=== PATIENT | male | born 1985 | race Caucasian/White ===

== ENCOUNTER 2017-01-29 10:50 | Emergency (ER) | payer MEDICARE, OTHER ==
[~2017-01-29] VITALS: Wt 65.0 kg
[2017-01-29] MEDS ORDERED: KETOROLAC 30 MG INJ IV STA (14:49)
[2017-01-29] MEDS ORDERED: ONDANSETRON 4 MG INJ IV STA (14:49)
[2017-01-29] MEDS ORDERED: SOD CHLORIDE 0.9% 1,000 ML IV STA (14:49)
[2017-01-29 15:05] LABS: ADD SCAN DIFF NO
[2017-01-29 15:07] LABS: ADD UMIC YES; URINE BILIRUBIN (Dip) NEGATIVE (NEGATIVE); URINE BLOOD (Dip) 3+ (NEGATIVE); URINE COLOR LT. YELLOW (YELLOW); URINE GLUCOSE (Dip) NEGATIVE (NEGATIVE); URINE KETONES (Dip) 15 (NEGATIVE); URINE LEUKOCYTE ESTERASE (Dip) NEGATIVE (NEGATIVE); URINE NITRITE (Dip) NEGATIVE (NEGATIVE); URINE TOTAL PROTEIN (Dip) 1+ (NEGATIVE); URINE UROBILINOGEN (Dip) 0.2 E.U./dL (0.1-1.0)
[2017-01-29 15:11] LABS: ABNORMAL IP MESSAGE 1; HEMATOCRIT 47.2 % (42.0-52.0); HEMOGLOBIN 15.8 g/dl (14.0-18.0); MEAN CORPUSCULAR HEMOGLOBIN 29.3 pg (29.0-33.0); MEAN CORPUSCULAR HGB CONC 33.5 g/dl (32.0-37.0); MEAN CORPUSCULAR VOLUME 87.6 fl (82.0-101.0); MEAN PLATELET VOLUME 9.3 fl (7.4-10.4); PLATELET COUNT 267 10^3/UL (140-415); RED BLOOD COUNT 5.39 10^6/ul (4.70-6.10); RED CELL DISTRIBUTION WIDTH 12.9 % (11.5-14.5); WHITE BLOOD COUNT 18.4 10^3/ul (4.8-10.8)
[2017-01-29 15:19] LABS: ALBUMIN 4.7 g/dl (3.3-4.9)
[2017-01-29 15:20] LABS: POTASSIUM 4.4 mmol/L (3.5-5.1)
[2017-01-29 15:22] LABS: ALBUMIN/GLOBULIN RATIO 1.38; BILIRUBIN,INDIRECT 0.4 mg/dl (0-1.1); BILIRUBIN,TOTAL 0.4 mg/dl (0.2-1.3); CREATININE 1.17 mg/dl (0.61-1.24); TOTAL PROTEIN 8.1 g/dl (6.1-8.1)
[2017-01-29 15:23] LABS: CALCIUM 9.7 mg/dl (8.4-10.2); URINE RBCS >50 /HPF (0)
--- NOTE | 2017-01-29 16:00 | RADRPT ---
PROCEDURE: Renal US. CLINICAL INDICATION: Renal dysfunction. TECHNIQUE: Multiple sonographic images of the kidneys and urinary bladder were obtained. The imag es were reviewed on a PACS workstation. COMPARISON: No prior studies are available for comparison. FINDINGS: The right kidney measures 10.5 x 4.4 x 6.1 cm. The left kidney measures 10.5 x 4.9 x 4.1 cm. There is no renal mass. There is mild right hydronephrosis with no obstructing lesion visualized. There is no left hydronep hrosis. There is no renal calculus. Renal parenchymal thickness is normal bilaterally. Both kidneys are hyperechoic consistent with med ical renal disease. The perirenal regions are normal with no fluid collection or mass. The urinary bladder is unremarkable. IMPRESSION: 1. Mild right hydronephrosis. No obstructing lesion visualized. 2. Bilateral hyperechoic kidneys consistent with medical renal disease. 3. Otherwise normal renal ultrasound. RPTAT: QQ .Chapincito Quintanilla MD, MD Date Time Electronically viewed and signed by .Chapincito Quintanilla MD, on 01/29/2017 16:00 .R/
[2017-01-29 16:51] LABS: LYMPHOCYTES # 0.4 10^3/ul (0.8-2.9); MONOCYTE # 0.4 10^3/ul (0.3-0.9); NEUTROPHIL # 17.5 10^3/ul (1.6-7.5)
[2017-01-29 16:53] LABS: PLATELET ESTIMATE PLT APPEAR ADEQUATE
[2017-01-29] MEDS ORDERED: CIPR500T4 PO (17:17)
[2017-01-29] MEDS ORDERED: HYDR-906 PO (17:17)
--- NOTE | 2017-01-29 17:28 | ERD ---
ER Documentation Chief Complaint Date/Time DATE: 01/29/17 TIME: 17:20 Chief Complaint RIGHT FLANK PAIN SUDDEN ONSET SINCE THIS AM,VOMITING. NO HEMATURIA HPI 31-year-old male with a past medical history of nephrolithiasis presents the ED complaining of bilateral flank pain that started earlier this morning associated with a few episodes of nonbilious nonbloody vomiting. States the pain first started on his right flank and then radiated to his left flank. States that he tried taking Tylenol which did not help with his pain. Reports that moving around makes the pain worse. Denies any chest pain, abdominal pain , scrotal pain, dysuria, urgency, frequency, polydipsia, polyuria, diarrhea. ROS All systems reviewed and are negative except as per history of present illness. Medications Home Meds Active Scripts Ciprofloxacin Hcl* (Ciprofloxacin Hcl*) 500 Mg Tablet, 500 MG PO BID for 10 Days , TAB Prov:ALLYSON COLEMAN PA-C 01/29/17 Hydrocodone/Acetaminophen (Paterson 5-325 Tablet) 1 Each Tablet, 1 TAB PO Q6H Y for PAIN, #7 TAB Prov:ALLYSON COLEMAN PA-C 01/29/17 Reported Medications [None] No Conflict Check 10/16/10 Allergies Allergies: Coded Allergies: No Known Allergies (Verified Allergy, Mild, 01/08/13) PMhx/Soc Medical and Surgical Hx: pt denies Surgical Hx History of Surgery: No Anesthesia Reaction: No Hx Neurological Disorder: No Hx Respiratory Disorders: No Hx Cardiac Disorders: No Hx Psychiatric Problems: Yes (SCHIZOPHRENIA) Hx Miscellaneous Medical Probl: No Hx Alcohol Use: No Hx Substance Use: No Hx Tobacco Use: No Physical Exam Vitals Vital Signs Date Time Temp Pulse Resp B/P Pulse Ox O2 Delivery O2 Flow Rate FiO2 01/29/17 10:54 98.7 84 20 127/89 97 Physical Exam Const: Cuz-[id number]-[id number], well-nourished. In no acute distress. Head: Atraumatic, normocephalic Eyes: Normal Conjunctiva without injection. No purulent discharge. ENT: Normal external ear, nose. Moist oropharynx without tonsillar exudates. Non -erythematous pharynx. Uvula midline. No drooling. No trismus. Neck: No cervical midline tenderness. Full range of motion. No meningismus. No cervical lymphadenopathy. No JVD. Resp: Clear to auscultation bilaterally. No wheezing, rhonchi, rales, or crackles. No accessory muscle use. No retractions. Cardio: Regular rate and rhythm. No murmurs, rubs or gallops. Abd: Soft, nontender, non distended. Normal bowel sounds. No palpable masses. No rebound tenderness. No guarding. Negative McBurney's point. Negative psoas sign. Negative obturator sign. Skin: No petechiae or rashes Back: No midline tenderness. Bilateral CVA tenderness. Ext: No cyanosis, or edema. Neur: Awake and alert. Normal gait. Normal coordination. Psych: Normal Mood and Affect Result Diagram: 01/29/17 1458 01/29/17 1458 Results 24 hrs Laboratory Tests Test 01/29/17 14:58 Alanine Aminotransferase (ALT/SGPT) 23IU/L Albumin 4.7g/dl Albumin/Globulin Ratio 1.38 Alkaline Phosphatase 64IU/L Anion Gap 16 Aspartate Amino Transf (AST/SGOT) 25IU/L Band Neutrophils % 1.0% Blood Urea Nitrogen 20mg/dl Calcium Level 9.7mg/dl Carbon Dioxide Level 29mmol/L Chloride Level 100mmol/L Creatinine 1.17mg/dl Direct Bilirubin 0.00mg/dl Globulin 3.40g/dl Glucose Level 115mg/dl Hematocrit 47.2% Hemoglobin 15.8g/dl Indirect Bilirubin 0.4mg/dl Lipase 86U/L Lymphocytes # 0.410^3/ul Lymphocytes % 2.0% Macrocytosis 1+ Mean Corpuscular Hemoglobin 29.3pg Mean Corpuscular Hemoglobin Concent 33.5g/dl Mean Corpuscular Volume 87.6fl Mean Platelet Volume 9.3fl Monocytes # 0.410^3/ul Monocytes % 2.0% Neutrophils # 17.510^3/ul Neutrophils % 95.0% Platelet Count 27801^3/UL Platelet Estimate PLT APPEAR ADEQUATE Potassium Level 4.4mmol/L Red Blood Count 5.3910^6/ul Red Cell Distribution Width 12.9% Sodium Level 141mmol/L Total Bilirubin 0.4mg/dl Total Protein 8.1g/dl Urine Bilirubin NEGATIVE Urine Clarity SLIGHTLY CLOUDY Urine Color LT. YELLOW Urine Glucose NEGATIVE% Urine Hemoglobin 3+ Urine Ketones 15 Urine Leukocyte Esterase NEGATIVE Urine Microscopic RBC >50/HPF Urine Microscopic WBC 0-2/HPF Urine Nitrite NEGATIVE Urine Specific [place] 1.015 Urine Total Protein 1+ Urine Urobilinogen 0.2 E.U./dL Urine pH 8.5 White Blood Count 18.410^3/ul Current Medications Medications (Trade) Dose Ordered Sig/Sandy Route PRN Reason Start Time Stop Time Status Last Admin Dose Admin Sodium Chloride (NS) 1,000 ml @ 1,000 mls/hr Q1H STAT IV 01/29/17 14:49 01/29/17 15:48 DC 01/29/17 14:59 Ondansetron HCl (Zofran Inj) 4 mg ONCE STAT IV 01/29/17 14:49 01/29/17 14:52 DC 01/29/17 14:58 Ketorolac Tromethamine (Toradol) 30 mg ONCE STAT IV 01/29/17 14:49 01/29/17 14:52 DC 01/29/17 14:58 Procedures/MDM This is a 31-year-old male with a past medical history of nephrolithiasis presents to the ED complaining of bilateral flank pain. Patient is afebrile and nontoxic-appearing. Patient has normal vital signs. Based on patient's pain, patient was worked up with a CBC, CMP, lipase, bilateral renal ultrasound. Patient's pain improved after 1 L of normal saline, 30 mg IV ketorolac. CBC: Leukocytosis with 18.4. No e/o anemia. CMP: No e/o severe acidosis, alkalosis, BUN CR within normal limits, diabetic ketoacidosis, liver disease Lipase within normal limits. Urine: No leukocyte esterase, no nitrites, 2+ hematuria. PROCEDURE: Renal US. CLINICAL INDICATION: Renal dysfunction. TECHNIQUE: Multiple sonographic images of the kidneys and urinary bladder were obtained. The images were reviewed on a PACS workstation. COMPARISON: No prior studies are available for comparison. FINDINGS: The right kidney measures 10.5 x 4.4 x 6.1 cm. The left kidney measures 10.5 x 4.9 x 4.1 cm. There is no renal mass. There is mild right hydronephrosis with no obstructing lesion visualized. There is no left hydronephrosis. There is no renal calculus. Renal parenchymal thickness is normal bilaterally. Both kidneys are hyperechoic consistent with medical renal disease. The perirenal regions are normal with no fluid collection or mass. The urinary bladder is unremarkable. IMPRESSION: 1. Mild right hydronephrosis. No obstructing lesion visualized. 2. Bilateral hyperechoic kidneys consistent with medical renal disease. 3. Otherwise normal renal ultrasound. Leukocytosis noted of 18.4. This case discussed with my supervising physician, Dr. Rodriguez who reported that patient can be managed on outpatient basis. Low suspicion for septic renal stone. We will treat patient with a course of antibiotics. A differential diagnosis considered includes but is not limited to gastritis, GERD, peptic ulcer disease, cholecystitis, choledocholithiasis, cholangitis, pancreatitis, appendicitis, bowel obstruction, ileus, volvulus, nephrolithiasis, pyelonephritis, hepatitis, perforated viscus, diverticulitis, abdominal hernia, acute abdomen, mesenteric ischemia or other emergent conditions. Discharge medications: [place], ciprofloxacin Follow up with primary care physician in 1-2 days for referral to soft crab shedder. Instructed patient to return to the ED sooner for any worsening symptoms. Patient's questions were answered. Patient understood and agreed with discharge plan. Patient discharged stable. Departure Diagnosis: Primary Impression: Flank pain Condition: Stable Patient Instructions: Finding Support for Kidney Disease Referrals: PRESTON GAMEZ MD (PCP) [facility] YOU HAVE RECEIVED A MEDICAL SCREENING EXAM AND THE RESULTS INDICATE THAT YOU DO NOT HAVE A CONDITION THAT REQUIRES URGENT TREATMENT IN THE EMERGENCY DEPARTMENT. FURTHER EVALUATION AND TREATMENT OF YOUR CONDITION CAN WAIT UNTIL YOU ARE SEEN IN YOUR DOCTORS OFFICE WITHIN THE NEXT 1-2 DAYS. IT IS YOUR RESPONSIBILITY TO MAKE AN APPOINTMENT FOR FOLOW-UP CARE. IF YOU HAVE A PRIMARY DOCTOR --you should call your primary doctor and schedule an appointment IF YOU DO NOT HAVE A PRIMARY DOCTOR YOU CAN CALL OUR PHYSICIAN REFERRAL HOTLINE AT IF YOU CAN NOT AFFORD TO SEE A PHYSICIAN YOU CAN CHOSE FROM THE FOLLOWING [facility] [place] [address] [facility] [address] [facility] [facility] [address] [facility] [address] [facility] [address] [facility] [address] [facility]. [facility] YOU HAVE RECEIVED A MEDICAL SCREENING EXAM AND THE RESULTS INDICATE THAT YOU DO NOT HAVE A CONDITION THAT REQUIRES URGENT TREATMENT IN THE EMERGENCY DEPARTMENT. FURTHER EVALUATION AND TREATMENT OF YOUR CONDITION CAN WAIT UNTIL YOU ARE SEEN IN YOUR DOCTORS OFFICE WITHIN THE NEXT 1-2 DAYS. IT IS YOUR RESPONSIBILITY TO MAKE AN APPOINTMENT FOR FOLOW-UP CARE. IF YOU HAVE A PRIMARY DOCTOR --you should call your primary doctor and schedule and appointment IF YOU DO NOT HAVE A PRIMARY DOCTOR YOU CAN CALL OUR PHYSICIAN REFERRAL HOTLINE AT . IF YOU CAN NOT AFFORD TO SEE A PHYSICIAN YOU CAN CHOSE FROM THE FOLLOWING [facility] INSTITUTIONS: [facility] [address] [place] [address] [facility] [address] [place], [place] [id number] [place] [address] [address] [place] [address] [facility] URGENT CARE/SPECIALTIES Additional Instructions: FOLLOW UP WITH YOUR PRIMARY CARE PHYSICIAN TOMORROW for a referral to neprhologist (kidney doctor) and urologist (bladder doctor) for further treatment and evaluation.Return to this facility if you are not improving as expected. ALLYSON COLEMAN PA-C Jan 29, 2017 17:28
[2017-01-29 17:43] VITALS: BP 122/68; PULSE 68; RESP 18
== END 2017-01-29 17:47 | disposition home or self-care (01) ==
LOC: FTE 10:50
DX: R10.9 Unspecified abdominal pain (principal); R11.10 Vomiting, unspecified
CPT/HCPCS: 36415; 76775; 80053; 81001; 83690; 85025; 96374; 96375; 99285; J1885; J2405; J7030; 81003